=== PATIENT | female | born 1985 | race Caucasian/White ===

== ENCOUNTER → 2019-06-18 | Outpatient (REF) | payer BC, OTHER, SELFPAY ==
[~2019-06-18] MED LIST: DOCU5LIQ PO; IBUP600T26 PO; LANOLIN CREAM TOP; MAPA500T17 PO; MOM30SS PO; OXYC1TAB23 PO; PRENTAB9 PO
== END ==
LOC: M LAB REF 13:35
PROVIDERS: ATTEND Physician Assistant
DX: N39.0 Urinary tract infection, site not specified (principal)

== ENCOUNTER → 2019-08-23 | Outpatient (REF) | payer OTHER ==
[2019-08-23 13:06] LABS: HEMATOCRIT 36.5 % (36.0-47.0); HEMOGLOBIN 11.3 g/dl (12.0-15.5); MEAN CORPUSCULAR HEMOGLOBIN 25.3 pg (27.0-33.0); MEAN CORPUSCULAR VOLUME 81.7 fl (80.0-96.0); PLATELET COUNT, AUTOMATED 308 10^3/uL (150-450); RED BLOOD COUNT 4.47 10^6/uL (4.00-5.40); WHITE BLOOD COUNT 5.7 10^3/uL (4.0-10.0)
[2019-08-23 13:16] LABS: ALBUMIN 3.9 GM/DL (3.2-5.2); ALT/SGPT 23 U/L (12-78); BILIRUBIN,TOTAL 0.5 MG/DL (0.2-1.0); BLOOD UREA NITROGEN 12 MG/DL (7-18); CALCIUM LEVEL 10.1 MG/DL (8.5-10.1); CARBON DIOXIDE LEVEL 27 MEQ/L (21-32); CHLORIDE LEVEL 108 MEQ/L (98-107); CREATININE FOR GFR 0.76 MG/DL (0.55-1.30); FREE T4 1.12 NG/DL (0.76-1.46); GLOMERULAR FILTRATION RATE > 60.0 (>60); GLUCOSE, FASTING 90 MG/DL (70-100); POTASSIUM SERUM 4.5 MEQ/L (3.5-5.1); SODIUM LEVEL 138 MEQ/L (136-145); TOTAL PROTEIN 7.7 GM/DL (6.4-8.2)
== END ==
LOC: M SFHCADAM 10:37
PROVIDERS: ATTEND Physician Assistant
DX: L65.9 Nonscarring hair loss, unspecified (principal); R63.5 Abnormal weight gain; E04.1 Nontoxic single thyroid nodule; K21.9 Gastro-esophageal reflux disease without esophagitis; G43.109 Migraine with aura, not intractable, without status migrainosus

== ENCOUNTER → 2019-09-04 | Outpatient (CLI) | payer OTHER ==
--- NOTE | 2019-09-05 17:10 | REP ---
Clinical: Thyroid nodule. Technique: Real time bentley scale and color evaluation using linear high frequency transducer. Comparison: 09/04/2010. Findings: The thyroid gland is essentially normal in contour, size, echogenicity, and overall appearance. Right lobe measures 5.4 x 1.8 x 1.8 cm and includes 3.3 x 1.9 x 2.4 mm mid pole nonspecific hypoechoic nodule. Left lobe measures 4.9 x 1.7 x 1.3 cm and includes 2.7 x 1.8 x 2.5 mm upper pole nonspecific hypoechoic nodule. Impression: Small solitary bilateral nonspecific nodules noted on current examination. Due to technical variations, comparison and correlation with 2011 examination is inconclusive. Electronically Signed by Roger Chan MD 09/05/2019 05:02 P
== END ==
LOC: M RAD 12:46
PROVIDERS: ATTEND Physician Assistant
DX: E04.1 Nontoxic single thyroid nodule (principal)

== ENCOUNTER → 2019-09-12 | Outpatient (REF) | payer OTHER | LOC: M SFHCADAM 09:13 | PROVIDERS: ATTEND Physician Assistant | DX: Z87.2 Personal history of diseases of the skin and subcutaneous tissue (principal); M25.50 Pain in unspecified joint; E55.9 Vitamin D deficiency, unspecified ==

== ENCOUNTER → 2020-01-08 | Outpatient (REF) | payer OTHER ==
[2020-03-03 04:17] LABS: CHOLESTEROL RISK RATIO 3.137 (<5)
== END ==
LOC: M SFHCADAM 10:47
PROVIDERS: ATTEND Physician Assistant
DX: R10.9 Unspecified abdominal pain (principal); R00.0 Tachycardia, unspecified

== ENCOUNTER → 2020-09-10 | Outpatient (REF) | payer OTHER | LOC: M SFHCADAM 08:14 | PROVIDERS: ATTEND Physician Assistant | DX: R63.5 Abnormal weight gain (principal); K21.9 Gastro-esophageal reflux disease without esophagitis; Z53.8 Procedure and treatment not carried out for other reasons ==

== ENCOUNTER → 2020-10-21 | Outpatient (REF) | payer OTHER ==
[2020-10-21 13:20] LABS: BLOOD UREA NITROGEN 10 MG/DL (7-18); CARBON DIOXIDE LEVEL 24 MEQ/L (21-32); CHLORIDE LEVEL 108 MEQ/L (98-107); CREATININE FOR GFR 0.69 MG/DL (0.55-1.30); GLOMERULAR FILTRATION RATE > 60.0 (>60); GLUCOSE, FASTING 103 MG/DL (70-100); POTASSIUM SERUM 4.8 MEQ/L (3.5-5.1); SODIUM LEVEL 140 MEQ/L (136-145)
[2020-10-21 13:21] LABS: ALBUMIN 3.8 GM/DL (3.2-5.2); ALT/SGPT 21 U/L (12-78); BILIRUBIN,TOTAL 0.2 MG/DL (0.2-1.0); CALCIUM LEVEL 9.9 MG/DL (8.5-10.1); FREE T4 1.04 NG/DL (0.76-1.46); THYROID STIMULATING HORMONE 0.824 uIU/ML (0.358-3.740); TOTAL PROTEIN 7.4 GM/DL (6.4-8.2)
[2020-10-21 13:47] LABS: CORTISOL AM 13.5 UG/DL (4.3-22.4)
== END ==
LOC: M SFHCADAM 09:33
PROVIDERS: ATTEND Physician Assistant
DX: R63.5 Abnormal weight gain (principal); K21.9 Gastro-esophageal reflux disease without esophagitis

== ENCOUNTER → 2020-10-21 | Outpatient (REF) | payer OTHER ==
[2020-10-21 13:19] LABS: FREE T4 1.06 NG/DL (0.76-1.46); THYROID STIMULATING HORMONE 0.875 uIU/ML (0.358-3.740)
[2020-10-21 13:47] LABS: THYROID PEROXIDASE ANTIBODY 40.1 U/ML (<60.0)
== END ==
LOC: M LABDRWAD 12:43
PROVIDERS: ATTEND Otolaryngology
DX: E06.3 Autoimmune thyroiditis (principal)

== ENCOUNTER → 2021-10-07 | Outpatient (CLI) | payer OTHER ==
[2021-10-07 11:10] LABS: CHOLESTEROL RISK RATIO 3.142 (<5); FREE T4 0.99 NG/DL (0.76-1.46); THYROID STIMULATING HORMONE 1.09 uIU/ML (0.358-3.740)
== END ==
LOC: M PLALAB 07:52
PROVIDERS: ATTEND Physician Assistant
DX: R63.5 Abnormal weight gain (principal); R10.9 Unspecified abdominal pain; Z13.220 Encounter for screening for lipoid disorders

== ENCOUNTER → 2021-10-15 | Outpatient (CLI) | payer OTHER | LOC: M PLAIMG 09:07 | PROVIDERS: ATTEND Physician Assistant | DX: R10.9 Unspecified abdominal pain (principal); Z97.5 Presence of (intrauterine) contraceptive device ==

== ENCOUNTER → 2021-11-06 | Outpatient (REF) | payer OTHER | LOC: M LAB REF 21:59 | PROVIDERS: ATTEND Physician Assistant | DX: J02.9 Acute pharyngitis, unspecified (principal) ==

== ENCOUNTER → 2021-11-13 | Outpatient (CLI) | payer OTHER | LOC: M EKG 16:36 | PROVIDERS: ATTEND Physician Assistant | DX: R00.0 Tachycardia, unspecified (principal) ==

== ENCOUNTER → 2021-11-20 | Outpatient (CLI) | payer OTHER ==
[2021-11-20 16:09] LABS: HEMATOCRIT 35.2 % (36.0-47.0); HEMOGLOBIN 11.3 g/dl (12.0-15.5); MEAN CORPUSCULAR HEMOGLOBIN 27.3 pg (27.0-33.0); MEAN CORPUSCULAR HGB CONC 32.1 g/dl (32.0-36.5); PLATELET COUNT, AUTOMATED 332 10^3/uL (150-450); RED BLOOD COUNT 4.14 10^6/uL (4.00-5.40)
== END ==
LOC: M LAB 15:32
PROVIDERS: ATTEND Physician Assistant
DX: R00.2 Palpitations (principal)

== ENCOUNTER → 2021-11-22 | Outpatient (REF) | payer OTHER | LOC: M LAB REF 09:36 | PROVIDERS: ATTEND Physician Assistant | DX: R00.2 Palpitations (principal) ==

== ENCOUNTER → 2022-11-11 | Outpatient (REF) | payer OTHER ==
[2022-11-11 17:02] LABS: BASO # 0.1 10^3/uL (0.0-0.2); BASO % 0.7 % (0.0-1.0); EOS # 0.1 10^3/uL (0.0-0.5); EOS % 1.6 % (0.0-3.0); HEMATOCRIT 36.9 % (36.0-47.0); HEMOGLOBIN 11.7 g/dl (12.0-15.5); LYMPH # 1.8 10^3/uL (1.5-5.0); LYMPH % 26.8 % (24.0-44.0); MEAN CORPUSCULAR HGB CONC 31.7 g/dl (32.0-36.5); MEAN CORPUSCULAR VOLUME 85.2 fl (80.0-96.0); MONO # 0.6 10^3/uL (0.0-0.8); NEUTROPHILS # 4.3 10^3/uL (1.5-8.5); NEUTROPHILS % 62.5 % (36.0-66.0); PLATELET COUNT, AUTOMATED 289 10^3/uL (150-450); RED BLOOD COUNT 4.33 10^6/uL (4.00-5.40); WHITE BLOOD COUNT 6.9 10^3/uL (4.0-10.0)
[2022-11-11 17:09] LABS: HEMOGLOBIN A1c 5.2 % (4.0-6.0)
[2022-11-11 17:26] LABS: THYROID STIMULATING HORMONE 0.992 uIU/ML (0.55-4.78); TOTAL 25(OH) VITAMIN D 19.3 NG/ML (20.0-100.0)
[2022-11-11 17:27] LABS: ALBUMIN 3.9 G/DL (3.2-5.2); ALKALINE PHOSPHATASE 58 U/L (46-116); ALT/SGPT 17 U/L (7.0-40); AST/SGOT 13 U/L (<34); BILIRUBIN,TOTAL 0.4 MG/DL (0.3-1.2); BLOOD UREA NITROGEN 8 MG/DL (9-23); CARBON DIOXIDE LEVEL 27 MMOL/L (20-31); CHLORIDE LEVEL 107 MMOL/L (98-107); CREATININE FOR GFR 0.74 MG/DL (0.55-1.30); FREE T4 1.07 NG/DL (0.89-1.76); GLOMERULAR FILTRATION RATE > 60.0 (>60); GLUCOSE, FASTING 81 MG/DL (60-100); POTASSIUM SERUM 4.6 MMOL/L (3.5-5.1); PTH INTACT 95.6 PG/ML (18.5-88.0); SODIUM LEVEL 140 MMOL/L (136-145); TOTAL PROTEIN 6.9 G/DL (5.7-8.2)
== END ==
LOC: M SFHCADAM 14:54
PROVIDERS: ATTEND Physician Assistant
DX: Z68.34 Body mass index [BMI] 34.0-34.9, adult (principal); E04.1 Nontoxic single thyroid nodule; E55.9 Vitamin D deficiency, unspecified; G43.009 Migraine without aura, not intractable, without status migrainosus

== ENCOUNTER → 2022-12-21 | Outpatient (REF) | payer OTHER ==
[2022-12-21 13:30] LABS: C REACTIVE PROTEIN QUANTITATIV < 0.40 MG/DL (<1.0); PTH INTACT 92.4 PG/ML (18.5-88.0); TOTAL 25(OH) VITAMIN D 14.3 NG/ML (20.0-100.0)
[2022-12-22 23:10] LABS: ANA (HEP2) Negative (.)
== END ==
LOC: M SFHCADAM 09:31
PROVIDERS: ATTEND Physician Assistant
DX: L56.8 Other specified acute skin changes due to ultraviolet radiation (principal); G43.109 Migraine with aura, not intractable, without status migrainosus; K21.9 Gastro-esophageal reflux disease without esophagitis; E04.1 Nontoxic single thyroid nodule; E55.9 Vitamin D deficiency, unspecified; J01.90 Acute sinusitis, unspecified; M89.8X1 Other specified disorders of bone, shoulder; R79.89 Other specified abnormal findings of blood chemistry

== ENCOUNTER → 2022-12-30 | Outpatient (CLI) | payer OTHER | LOC: M RAD 07:39 | PROVIDERS: ATTEND Physician Assistant | DX: E04.1 Nontoxic single thyroid nodule (principal) ==

== ENCOUNTER → 2023-04-27 | Outpatient (REF) | payer OTHER ==
[2023-04-27 16:33] LABS: PTH INTACT 62.4 PG/ML (18.5-88.0)
[2023-04-27 16:38] LABS: FREE T4 1.11 NG/DL (0.89-1.76); THYROID STIMULATING HORMONE 0.785 uIU/ML (0.55-4.78); TOTAL 25(OH) VITAMIN D 17.3 NG/ML (20.0-100.0)
== END ==
LOC: M SFHCADAM 14:37
PROVIDERS: ATTEND Physician Assistant
DX: E04.1 Nontoxic single thyroid nodule (principal); E55.9 Vitamin D deficiency, unspecified; N25.81 Secondary hyperparathyroidism of renal origin

== ENCOUNTER → 2023-04-28 | Outpatient (CLI) | payer OTHER | LOC: M WHC 07:09 | PROVIDERS: ATTEND Physician Assistant | DX: R10.11 Right upper quadrant pain (principal) ==

== ENCOUNTER → 2023-07-28 | Outpatient (REF) | payer OTHER ==
[2023-07-28 17:42] LABS: AMORPHOUS SEDIMENT SMALL (NEGATIVE); APPEARANCE, URINE CLEAR (CLEAR); BACTERIA, URINE AUTO NEGATIVE (NEGATIVE); BILIRUBIN, URINE AUTO NEGATIVE (NEGATIVE); BLOOD, URINE BLOOD NEGATIVE (NEGATIVE); COLOR, URINE STRAW (YELLOW); GLUCOSE, URINE (UA) AUTO NEGATIVE (NEGATIVE); KETONE, URINE AUTO NEGATIVE (NEGATIVE); LEUKOCYTE ESTERASE, URINE AUTO NEGATIVE (NEGATIVE); NITRITE, URINE AUTO NEGATIVE (NEGATIVE); PROTEIN, URINE AUTO NEGATIVE (NEGATIVE); RBC, URINE AUTO 1 /HPF (0-3); SPECIFIC GRAVITY URINE AUTO 1.006 (1.002-1.035); SQUAMOUS EPITHELIAL CELL UR AU 1 /HPF (0-6); UROBILINOGEN, URINE AUTO 0.2 mg/dL (0.0-2.0); WBC, URINE AUTO 0 /HPF (0-3)
== END ==
LOC: M LAB REF 16:22
PROVIDERS: ATTEND Physician Assistant
DX: N39.0 Urinary tract infection, site not specified (principal)